=== PATIENT | female | born 1965 | race African-American/Black ===

== ENCOUNTER 2025-05-15 18:12 | Emergency (ER) | payer OTHER ==
[~2025-05-15] VITALS: Ht 154.9 cm; Wt 71.4 kg
[~2025-05-15 18:12] MED LIST: GLUCOPHAGE; PRILOSEC
[2025-05-15] MEDS ORDERED: EMPA10TA3 PO (18:20)
[2025-05-15] MEDS ORDERED: PERCT PO (18:20)
[2025-05-15] MEDS ORDERED: ATOR20TA PO (18:20)
[2025-05-15] MEDS ORDERED: AMLO2.5T96 PO (18:20)
[2025-05-15] MEDS ORDERED: LOSA-382 PO (18:20)
[2025-05-15] MEDS ORDERED: OMEP-148 PO (18:20)
[2025-05-15] MEDS ORDERED: TRAZ-252 PO (18:20)
[2025-05-15] MEDS ORDERED: FAMO20 PO (18:20)
[2025-05-15] MEDS ORDERED: SEMA1PEN3 PO (18:20)
[2025-05-15 18:44] LABS: BASOPHILS % (AUTO) 0.7 % (0.0-2.0); EOSINOPHILS % (AUTO) 0.7 % (1.0-6.0); HEMATOCRIT 38.5 % (36-46); HEMOGLOBIN 12.7 g/dL (12.0-16.0); LYMPHOCYTES # (AUTO) 1.8 K/uL (1.0-4.8); LYMPHOCYTES % (AUTO) 26.1 % (22.0-44.0); MEAN CORPUSCULAR HEMOGLOBIN 31.1 pg (26.0-34.0); MEAN CORPUSCULAR HGB CONC 33.1 G/dL (31.0-37.0); MEAN CORPUSCULAR VOLUME 94 fL (80-100); MONOCYTES # (AUTO) 0.4 K/uL (0.1-1.0); MONOCYTES % (AUTO) 5.2 % (2.0-9.0); NEUTROPHILS # (AUTO) 4.6 K/uL (1.8-7.7); NEUTROPHILS % (AUTO) 67.3 % (40.0-70.0); PLATELET COUNT (AUTO) 282 K/uL (150-450); RED BLOOD CELL COUNT(AUTO) 4.09 MIL/uL (4.00-5.20); RED CELL DISTRIBUTION WIDTH 14.5 % (11.5-14.5); WHITE BLOOD COUNT (AUTO) 6.8 K/uL (4.5-11.0)
[2025-05-15 18:54] LABS: ANION GAP 7 mmol/L (8-16); CALCIUM, TOTAL 9.2 mg/dL (8.8-10.5); CARBON DIOXIDE 25 mmol/L (22-29); CHLORIDE 101 mmol/L (98-107); CREATININE 0.97 mg/dL (0.60-1.30); GLOMERULAR FILTR. RATE CALC > 60 mL/min (>60); GLUCOSE,RANDOM 198 mg/dL (70-110); POTASSIUM 3.3 mmol/L (3.5-5.1); SODIUM SERUM 133 mmol/L (136-145); UREA NITROGEN, BLOOD 14 mg/dL (7-18)
[2025-05-15 19:03] LABS: TROPONIN I-HIGH SENSITIVITY 7 ng/L (<51)
[2025-05-15 21:06] LABS: ALBUMIN 3.6 g/dL (3.4-5.0); BILIRUBIN,DIRECT 0.1 mg/dL (0.00-0.20); BILIRUBIN,TOTAL 0.4 mg/dL (0.1-1.0); TOTAL PROTEIN, SERUM 7.4 g/dL (6.4-8.2)
[2025-05-15] MEDS: METOCLOPRAMIDE HCL 5 MG/ML 2 ML VIAL IVP ONE (21:09)
[2025-05-15] MEDS: SODIUM CHLORIDE 0.9% 1,000 ML IV ONE (21:09)
[2025-05-15] MEDS: MORPHINE SULFATE 2 MG/ML SYRINGE IVP ONE (21:10)
[2025-05-15 23:34] LABS: APPEARANCE,URINE CLEAR (CLEAR); BILIRUBIN,URINE NEGATIVE (NEGATIVE); COLOR,URINE COLORLESS (YELLOW); GLUCOSE, URINE (UA) NEGATIVE (NEGATIVE); KETONES,URINE NEGATIVE (NEGATIVE); LEUKOCYTE ESTERASE ,URINE NEGATIVE (NEGATIVE); NITRATE,URINE NEGATIVE (NEGATIVE); OCCULT BLOOD,URINE NEGATIVE (NEGATIVE); PH,URINE 7.5 (5.0-8.0); PROTEIN,URINE NEGATIVE (NEGATIVE); SPECIFIC GRAVITIY, URINE 1.008 (1.003-1.030); UROBILINOGEN,URINE <=1.0 mg/dL (<=1.0)
[2025-05-16] MEDS ORDERED: ACETAMINOPHEN 325 MG TABLET PO PRN
[2025-05-16] MEDS ORDERED: MORPHINE SULFATE 2 MG/ML SYRINGE IVP PRN
[2025-05-16] MEDS ORDERED: POTASSIUM CHL 10 MEQ/WATER 50 ML IV PRN
[2025-05-16] MEDS ORDERED: NALOXONE HCL 1 MG/ML 2 ML SYRINGE IVP PRN
[2025-05-16] MEDS ORDERED: ONDANSETRON HCL 4 MG/2 ML VIAL IVP PRN
[2025-05-16] MEDS ORDERED: POTASSIUM CHLORIDE 20 MEQ ER TABLET PO PRN
[2025-05-16] MEDS: RINGERS SOLUTION,LACTATED 1,000 ML IV SCH (00:45)
[2025-05-16] MEDS: HEPARIN SODIUM,PORCINE 5,000 UNITS/ML VIAL SQ SCH (00:46)
[2025-05-16 06:23] VITALS: TEMP 97.3
[2025-05-16 08:29] VITALS: BP 126/84; PULSE 73; RESP 18; O2SAT 97
[2025-05-16] MEDS ORDERED: POLYETHYLENE GLYCOL 3350 17 GM PACKET PO SCH (09:00)
[2025-05-16] MEDS ORDERED: DOCUSATE SODIUM 100 MG CAPSULE PO SCH (09:00)
[2025-05-19] MEDS ORDERED: ONDA-104 PO (12:13)
[2025-05-19] MEDS ORDERED: FAMO20 PO (12:13)
[2025-05-19] MEDS ORDERED: OMEP-148 PO (12:13)
== END 2025-05-16 09:12 | disposition admitted as inpatient to this hospital (09) ==
LOC: EMS 18:26 → EDH 05-16 00:54 → UNDOADMIN 05-16 00:54 → UNDODISIN 05-16 08:44
DX: R10.84 Generalized abdominal pain (principal); R11.2 Nausea with vomiting, unspecified; I10 Essential (primary) hypertension; E11.9 Type 2 diabetes mellitus without complications; Z88.5 Allergy status to narcotic agent; Z91.040 Latex allergy status; Z95.0 Presence of cardiac pacemaker; Z79.899 Other long term (current) drug therapy
CPT/HCPCS: 99285; 74176; 96374; 96361 ×2; 96375; 80048; 80076; 81003; 83690; 84484; 85025; 36415; 82962; 93005; J2765; J2270; J7030; J1644; J7120

== ENCOUNTER 2025-05-20 03:14 | Inpatient (IN) | payer OTHER ==
[~2025-05-20] VITALS: Ht 167.6 cm; Wt 69.9 kg
[~2025-05-20 03:14] MED LIST changes: +AMLO2.5T96 PO; +ATOR20TA PO; +EMPA10TA3 PO; +FAMO20 PO; -GLUCOPHAGE; +LOSA-382 PO; +OMEP-148 PO; +ONDA-104 PO; +PERCT PO; -PRILOSEC; +SEMA1PEN3 PO; +TRAZ-252 PO
[2025-05-20] MEDS ORDERED: MORPHINE SULFATE 2 MG/ML SYRINGE IVP ONE (03:45)
[2025-05-20 04:13] LABS: PLATELET COUNT (AUTO) 300 K/uL (150-450); RED BLOOD CELL COUNT(AUTO) 4.08 MIL/uL (4.00-5.20); RED CELL DISTRIBUTION WIDTH 14.4 % (11.5-14.5); WHITE BLOOD COUNT (AUTO) 7.3 K/uL (4.5-11.0)
[2025-05-20 04:23] LABS: CALCIUM, TOTAL 9.3 mg/dL (8.8-10.5); CREATININE 0.98 mg/dL (0.60-1.30); GLOMERULAR FILTR. RATE CALC > 60 mL/min (>60); GLUCOSE,RANDOM 222 mg/dL (70-110); SODIUM SERUM 141 mmol/L (136-145); UREA NITROGEN, BLOOD 10 mg/dL (7-18)
[2025-05-20 04:27] LABS: ASPARTATE AMINOTRANSFERASE 16.0 U/L (15-37); TOTAL PROTEIN, SERUM 7.1 g/dL (6.4-8.2)
[2025-05-20] MEDS: SODIUM CHLORIDE 0.9% 1,000 ML IV ONE ×2 (04:30→12:19)
[2025-05-20] MEDS: METOCLOPRAMIDE HCL 5 MG/ML 2 ML VIAL IVP ONE (04:31)
[2025-05-20 04:32] LABS: TROPONIN I-HIGH SENSITIVITY 28 ng/L (<51)
[2025-05-20] MEDS ORDERED: ACETAMINOPHEN 325 MG TABLET PO PRN (05:30)
[2025-05-20] MEDS ORDERED: DEXTROSE 50%-WATER 25 GM/50 ML SYRINGE IVP PRN (06:00)
[2025-05-20] MEDS ORDERED: NALOXONE HCL 1 MG/ML 2 ML SYRINGE IVP PRN (06:00)
[2025-05-20] MEDS: PIPERACILLIN/TAZO 3.375 GM/D5W 50 ML IV SCH (06:14)
[2025-05-20] MEDS: POTASSIUM CHL 10 MEQ/WATER 50 ML IV SCH (06:15)
[2025-05-20] MEDS: RINGERS SOLUTION,LACTATED 1,000 ML IV SCH (06:15)
[2025-05-20] MEDS: RINGERS SOLUTION,LACTATED 1,000 ML IV ONE (06:16)
[2025-05-20 08:45] VITALS: BP 150/99; PULSE 84; RESP 20; TEMP 98; O2SAT 98
[2025-05-20] MEDS: DOCUSATE SODIUM 100 MG CAPSULE PO SCH (09:00)
[2025-05-20 09:26] LABS: APPEARANCE,URINE CLEAR (CLEAR); GLUCOSE, URINE (UA) 300-500 mg/dL (NEGATIVE); LEUKOCYTE ESTERASE ,URINE NEGATIVE (NEGATIVE); NITRATE,URINE NEGATIVE (NEGATIVE); OCCULT BLOOD,URINE NEGATIVE (NEGATIVE); SPECIFIC GRAVITIY, URINE 1.006 (1.003-1.030)
[2025-05-20] MEDS: HEPARIN SODIUM,PORCINE 5,000 UNITS/ML VIAL SQ SCH (09:30)
[2025-05-20 09:32] LABS: SQUAMOUS EPITHELIAL CELL,UR Rare /LPF (None Seen)
[2025-05-20] MEDS ORDERED: IOHEXOL 9 MG/ML 500 ML BOTTLE ONE ×2 (09:53→09:54)
[2025-05-20] MEDS: ONDANSETRON HCL 4 MG/2 ML VIAL IVP PRN (10:27)
[2025-05-20] MEDS ORDERED: FLUMAZENIL 0.1 MG/ML 5 ML VIAL IVP ONE (10:58)
[2025-05-20] MEDS ORDERED: SODIUM TETRADECYL SULFATE 3% 60 MG/2 ML VIAL IVP ONE (10:59)
[2025-05-20] MEDS ORDERED: ATROPINE SULFATE 0.1 MG/ML 10 ML SYRINGE IVP ONE (10:59)
[2025-05-20] MEDS ORDERED: EPINEPHrine 1:10,000 [1 MG/10 ML] SYRINGE ONE (10:59)
[2025-05-20] MEDS ORDERED: NALOXONE HCL 0.4 MG/ML VIAL ONE (10:59)
[2025-05-20] MEDS ORDERED: MIDAZOLAM HCL 2 MG/2 ML VIAL ONE (11:00)
[2025-05-20] MEDS ORDERED: FentaNYL CITRATE PF 100 MCG/2 ML VIAL ONE (11:00)
[2025-05-20 13:34] VITALS: BP 198/91; PULSE 80; RESP 19; TEMP 99; O2SAT 97
[2025-05-20] MEDS ORDERED: SODIUM CHLORIDE 0.9% 250 ML IV ONE (14:23)
[2025-05-20] MEDS: LOSARTAN POTASSIUM 50 MG TABLET PO SCH (15:14)
[2025-05-20 15:22] VITALS: BP 133/88; PULSE 79; RESP 20; TEMP 97.9; O2SAT 99
[2025-05-20] MEDS ORDERED: SODIUM CHLORIDE 0.9% 100 ML ONE (15:45)
[2025-05-20] MEDS ORDERED: 0.9% SODIUM CHLORIDE 10 ML SYRINGE IVP ONE (15:45)
[2025-05-20] MEDS ORDERED: IOHEXOL 350 MG/ML 100 ML VIAL ONE (15:45)
[2025-05-20] MEDS: INSULIN LISPRO 100 UNITS/ML SQ PRN (17:38)
[2025-05-20 18:10] LABS: GLUCOMETER DEV NAME(LOC) 5N.2C; GLUCOSE,POINT OF CARE 141 MG/DL (70-110)
[2025-05-20 19:21] VITALS: BP_SYST 97; BP_DIAS 54; BP_DIAS 78; PULSE 70; RESP 19; TEMP 98.8; O2SAT 95
[2025-05-20 21:10] LABS: GLUCOMETER DEV NAME(LOC) 5N.2C; GLUCOSE,POINT OF CARE 120 MG/DL (70-110)
[2025-05-20] MEDS: ATORVASTATIN CALCIUM 40 MG TABLET PO SCH (21:37)
[2025-05-20] MEDS: FAMOTIDINE 20 MG TABLET PO SCH (21:37)
[2025-05-20 23:39] VITALS: BP 118/52; PULSE 60; RESP 18; TEMP 98.8; O2SAT 99
[2025-05-21] VITALS (8 sets, daily range): BP systolic 114–148; BP diastolic 59–101; PULSE 62–70; RESP 16–20; TEMP 98.1–99.5; O2SAT 94–100
[2025-05-21 05:40] LABS: GLUCOMETER DEV NAME(LOC) 5N.1D; GLUCOSE,POINT OF CARE 123 MG/DL (70-110)
[2025-05-21 06:39] LABS: PLATELET COUNT (AUTO) 274 K/uL (150-450); RED BLOOD CELL COUNT(AUTO) 3.81 MIL/uL (4.00-5.20); RED CELL DISTRIBUTION WIDTH 14.6 % (11.5-14.5); WHITE BLOOD COUNT (AUTO) 5.6 K/uL (4.5-11.0)
[2025-05-21 06:53] LABS: CALCIUM, TOTAL 9.0 mg/dL (8.8-10.5); CREATININE 0.96 mg/dL (0.60-1.30); GLOMERULAR FILTR. RATE CALC > 60 mL/min (>60); GLUCOSE,RANDOM 106 mg/dL (70-110); SODIUM SERUM 140 mmol/L (136-145); UREA NITROGEN, BLOOD 7 mg/dL (7-18)
[2025-05-21] MEDS: OMEPRAZOLE 20 MG CAPSULE PO SCH (10:01)
[2025-05-21] MEDS: PEG 3350/NA SULF,BICARB,CL/KCL 4000 ML SOLUTION PO ONE (11:01)
[2025-05-21] MEDS: BISACODYL 10 MG RECTAL RECTAL SUPPOSITORY PR ONE (15:13)
[2025-05-21] MEDS: POTASSIUM CHLORIDE 20 MEQ ER TABLET PO ONE (15:14)
[2025-05-22 03:14] VITALS: BP 144/73; PULSE 67; RESP 18; TEMP 98.8; O2SAT 93
[2025-05-22 03:15] LABS: GLUCOMETER DEV NAME(LOC) 5N.2C; GLUCOSE,POINT OF CARE 142 MG/DL (70-110)
[2025-05-22] MEDS ORDERED: MAGNESIUM SULFATE 4 GM/WATER 100 ML IV PRN (06:15)
[2025-05-22] MEDS ORDERED: MAGNESIUM OXIDE 400 MG TABLET PO PRN (06:15)
[2025-05-22 06:56] LABS: GLUCOMETER DEV NAME(LOC) 5N.2C; GLUCOSE,POINT OF CARE 113 MG/DL (70-110)
[2025-05-22 07:17] LABS: PLATELET COUNT (AUTO) 261 K/uL (150-450); RED BLOOD CELL COUNT(AUTO) 3.79 MIL/uL (4.00-5.20); RED CELL DISTRIBUTION WIDTH 14.7 % (11.5-14.5); WHITE BLOOD COUNT (AUTO) 4.4 K/uL (4.5-11.0)
[2025-05-22 07:32] LABS: CALCIUM, TOTAL 9.2 mg/dL (8.8-10.5); CREATININE 0.97 mg/dL (0.60-1.30); GLOMERULAR FILTR. RATE CALC > 60 mL/min (>60); GLUCOSE,RANDOM 140 mg/dL (70-110); SODIUM SERUM 143 mmol/L (136-145); UREA NITROGEN, BLOOD 4 mg/dL (7-18)
[2025-05-22 08:22] VITALS: BP 142/72; PULSE 68; RESP 19; TEMP 98.2; O2SAT 98
[2025-05-22 11:41] VITALS: BP 136/79; PULSE 61; RESP 17; TEMP 98.2; O2SAT 98
[2025-05-22] MEDS: MAGNESIUM SULFATE 2 GM/WATER 50 ML IV PRN (12:17)
[2025-05-23 08:20] LABS: GLUCOMETER DEV NAME(LOC) 5N.2C; GLUCOSE,POINT OF CARE 150 MG/DL (70-110)
== END 2025-05-22 14:00 | disposition home or self-care (01) | DRG 241 ==
LOC: EMS 03:37 → UNDOADMIN 05:28 → EDH 05:28 → 5N 08:40
PROVIDERS: ADMIT Internal Medicine; ATTEND Internal Medicine
PROC: 0DB78ZX Excision of Stomach, Pylorus, Via Natural or Artificial Opening Endoscopic, Diagnostic (ICD-10-PCS; principal; 2025-05-20 12:27)
DX: K29.70 Gastritis, unspecified, without bleeding (principal); E11.9 Type 2 diabetes mellitus without complications; R10.13 Epigastric pain; E87.6 Hypokalemia; I16.0 Hypertensive urgency; K21.9 Gastro-esophageal reflux disease without esophagitis; R11.2 Nausea with vomiting, unspecified; K44.9 Diaphragmatic hernia without obstruction or gangrene; K59.00 Constipation, unspecified; I10 Essential (primary) hypertension; Z88.5 Allergy status to narcotic agent; Z91.040 Latex allergy status; Z95.0 Presence of cardiac pacemaker; Z79.899 Other long term (current) drug therapy
CPT/HCPCS: 74176; 74177; 80048; 80076; 81001; 82009; 82040; 82962; 83690; 83735; 84484; 85025; 87081; 88305; 93005; 96361; 96374; 96375; 99285; J0171; J0461; J1171; J1200; J1644; J2250; J2310; J2405; J2543; J2765; J3010; J3475; J3480; J3490; J7030; J7050; J7120; 36415-L1; 36415-TC